=== PATIENT | male | born 1995 | race Caucasian/White ===

== ENCOUNTER 2024-09-26 10:27 | Emergency (ER) | payer BC ==
[~2024-09-26] VITALS: Ht 170.2 cm; Wt 79.5 kg
[2024-09-26 10:33] VITALS: TEMP 97.4
[2024-09-26] MEDS ORDERED: NS 1,000 ML IV ONE (11:00)
[2024-09-26] MEDS ORDERED: droPERidol 2.5 MG/ML 2 ML VIAL IV ONE (11:00)
[2024-09-26 11:12] LABS: BASO # 0.1 K/mm3 (0.0-0.2); BASO % 0.7 % (0.0-2.0); EOS % 0.3 % (0.0-4.0); GRAN # 4.4 K/mm3 (1.4-6.5); GRAN % 64.6 % (42.2-75.2); HEMATOCRIT 45.9 % (42.0-52.0); HEMOGLOBIN 16.3 g/dl (13.5-18.0); LYMPH # 1.9 K/mm3 (1.2-3.4); LYMPH % 27.4 % (20.0-51.0); MEAN CELL VOLUME 86 fl (80.0-100.0); MEAN CORPUSCULAR HEMOGLOBIN 31 pg (27-31); MEAN CORPUSCULAR HGB CONC 36 g/dl (33.0-37.0); MEAN PLATELET VOLUME 10.2 fl (7.4-10.4); MONO # 0.5 K/mm3 (0.1-0.6); MONO % 6.9 % (1.7-9.3); PLATELET COUNT 293 K/mm3 (130-400); RED BLOOD COUNT 5.34 M/mm3 (4.20-5.60); REDCELL DISTRIBUTION WIDTH-CV 11.8 % (11.5-14.5)
[2024-09-26 11:34] LABS: ALBUMIN 4.8 g/dL (3.5-5.0); BILIRUBIN,TOTAL 0.8 mg/dL (0.2-1.2); C-REACTIVE PROTEIN 0.36 mg/dL (0.00-0.50); CALCIUM 10.5 mg/dL (8.4-10.2); CREATININE, serum 0.94 mg/dL (0.72-1.25); POTASSIUM 4.2 mEq/L (3.5-4.5); TOTAL PROTEIN 8.4 g/dl (6.2-8.1)
[2024-09-26 11:34] LABS: COLLECTION METHOD CLEAN CATCH
[2024-09-26] MEDS ORDERED: Pantoprazole 40 MG in NS 10 ML IV ONE (12:00)
[2024-09-26 12:13] LABS: URINE APPEARANCE TURBID (CLEAR/HAZY); URINE BLOOD NEGATIVE (NEGATIVE); URINE COLOR YELLOW (YELLOW); URINE GLUCOSE NEGATIVE (NEGATIVE); URINE KETONE TRACE (NEGATIVE); URINE NITRATE NEGATIVE (NEGATIVE); URINE PROTEIN(semi-quant) 1+ (NEGATIVE)
[2024-09-26 12:18] LABS: PH >= 9.0 (5.0-8.5)
[2024-09-26] MEDS ORDERED: Iohexol 300 - 100 ML VIAL IV ONE (12:19)
[2024-09-26] MEDS ORDERED: NS 100 ML IV SCH (12:19)
[2024-09-26] MEDS ORDERED: PRILOSEC 20MG20 MG PO (13:31)
[2024-09-26] MEDS ORDERED: LORazepam 2 MG/ML 1 ML VIAL IV ONE (13:45)
[2024-09-26] MEDS ORDERED: ZOFRAN ODT4 MG PO (13:48)
[2024-09-26 14:01] VITALS: BP 138/70; PULSE 96
== END 2024-09-26 14:12 | disposition home or self-care (01) ==
LOC: COL.ER 10:27
PROVIDERS: Nurse Practitioner
DX: R10.12 Left upper quadrant pain (principal); R10.32 Left lower quadrant pain; R11.2 Nausea with vomiting, unspecified; K92.1 Melena
CPT/HCPCS: J1790; J2470; J7030; Q9967